=== PATIENT | male | born 1960 | race Caucasian/White ===

== ENCOUNTER 2017-04-29 21:29 | Emergency (ER) | payer MEDICAID, OTHER ==
[~2017-04-29] VITALS: Ht 167.6 cm; Wt 95.3 kg
--- NOTE | 2017-04-29 22:12 | NUR ---
To Bed 10.
[2017-04-29 22:14] VITALS: BP 112/68
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
[2017-04-29] MEDS ORDERED: KETOROLAC 60 MG/2 ML VIAL IM ONE (22:25)
[2017-04-29 22:51] VITALS: BP 107/63
--- NOTE | 2017-04-29 22:51 | NUR ---
Patient discharged with v/s stable. Written and verbal after care instructions given and explained. Patient verbalized understanding. Ambulatory with steady gait. All questions addressed prior to discharge. Advised to follow up with PMD. Addendum: 04/29/17 at 2256 by MEDND Patient discharged with v/s stable. Written and verbal after care instructions given and explained. Patient verbalized understanding. Ambulatory with steady gait. All questions addressed prior to discharge. Advised to follow up with PMD. PT STATES HE WILL CALL AN [facility] FOR TRANSPORT.
== END 2017-04-29 22:51 | disposition home or self-care (01) ==
LOC: MED 21:29
DX: M54.30 Sciatica, unspecified side (principal)
CPT/HCPCS: 96372; 99283; J1885